=== PATIENT | male | born 1980 | race African-American/Black ===

== ENCOUNTER 2016-07-26 15:47 | Emergency (ER) | payer OTHER, SELFPAY ==
[~2016-07-26 15:47] MED LIST: Iopamidol 370 76% 100 ML VIAL ONE
[2016-07-26 16:23] LABS: #Basophils 0.1 thou/uL (0.0-0.2); #Eosinphils 0.1 thou/uL (0.0-0.7); #Lymphocytes 2.5 thou/uL (1.20-3.40); #Monocytes 0.7 thou/uL (0.11-0.59); #Neutrophils 4.8 thou/uL (1.40-6.50); %Basophils 1.1 % (0.0-1.0); %Eosinophils 1.4 % (0.0-10.0); %Monocytes 8.4 % (0.0-10.0); Hematocrit 38.4 % (42.0-52.0); Mean Platelet Volume 8.1 fL (7.4-10.4); Red Blood Cell (RBC) Count 4.73 mill/uL (4.70-6.10); White Blood Cell (WBC) Count 8.3 thou/uL (4.8-10.8)
[2016-07-26 16:32] LABS: PTT 33.7 SEC (22.9-36.1); Prothrombin Time 18.2 SEC (12.0-14.7)
[2016-07-26 16:37] LABS: Lactic Acid - Sepsis 1.7 mmol/L (0.5-2.2)
[2016-07-26 16:40] LABS: ALT (SGPT) 481 U/L (0-55); AST (SGOT) 170 U/L (5-34); Alkaline Phosphatase 86 U/L (40-150); Anion Gap 14 mmol/L (10-20); BUN (Urea Nitrogen) 15 mg/dL (8.9-20.6); Bilirubin, Total 1.3 mg/dL (0.2-1.2); Calc. Creatinine Clearance 0 mL/min (70-130); Calcium 8.6 mg/dL (7.8-10.44); Carbon Dioxide 21 mmol/L (22-29); Chloride 108 mmol/L (98-107); Estimated GFR-MDRD 80; Globulin 3.4 g/dL (2.4-3.5)
[2016-07-26 16:46] LABS: Troponin I 0.076 ng/mL (< 0.028)
[2016-07-26] MEDS ORDERED: Nitroglycerin 50 MG/250 ML BOT 250 ML ONE (17:03)
[2016-07-26] MEDS ORDERED: Furosemide 40 MG/4 ML VIAL ONE (17:03)
[2016-07-26 17:41] LABS: Methamphetamine Detected (NotDetected)
[2016-07-26 17:42] LABS: Methadone Not Detected (NotDetected)
--- NOTE | 2016-07-26 18:08 | ERRECORD ---
[facility] EMERGENCY RECORD HPI SHORTNESS OF BREATH (16:17 DHAM) CHIEF COMPLAINT: Patient presents for evaluation of shortness of breath. HISTORIAN: History provided by patient, Pt had a fever to 101 several days ago but it has not recurred. LOCATION: Unable to localize symptoms. QUALITY: Symptoms described as tightness. SEVERITY: Current severity of pain rated as 1/10. TIME COURSE: Gradual onset of symptoms, 5, days priror to arrival, Symptoms are worsening, just to walk across the room causes him to feel shortness of breath. ASSOCIATED WITH: No associated anxiety, No associated chills, Associated with cough, for 5 days, No associated chest pain, No associated diaphoresis, No associated diarrhea, Associated with dyspnea on exertion, Associated with fever, Measured maximum temperature 101 to 101.9 degrees, taken orally, for 4 days, currently resolved, No associated increased inhaler use, No associated nausea, No associated palpitations, No associated upper respiratory infection, No associated vomiting, No associated wheezing, Denies any other complaints. EXACERBATED BY: Patient's condition not exacerbated by allergies, Patient's condition not exacerbated by deep breaths, Patient's condition exacerbated by exercise, Patient's condition exacerbated by smoking. RELIEVED BY: Patient's condition relieved by nothing, Patient's condition relieved by took alkaseltzer 2 days ago without relief. RISK FACTORS: Coronary artery disease risk factors, include hypertension, include smoking, Thoracic aortic dissection risk factors, include hypertension, Pulmonary embolism risk factors, include smoking. ROS (16:23 DHAM) EYES: Historian denies eye pain, denies eye redness, denies eye discharge. ENT: Historian denies dysphagia, denies otalgia, denies rhinorrhea, denies sinus pain, denies sore throat, denies stridor, denies voice changes. CARDIOVASCULAR: Historian denies chest pain, no radiation, Historian denies diaphoresis, reports dyspnea on exertion, denies edema, denies orthopnea, denies paroxysmal nocturnal dyspnea, denies syncope, denies palpitations. RESPIRATORY: Historian reports cough, reports shortness of breath, denies sputum, denies wheezing. GI: Historian denies abdominal pain, denies appetite changes, denies constipation, denies diarrhea, denies nausea, denies vomiting. GENITOURINARY MALE: Historian denies dysuria, denies urinary frequency, denies urinary retention. MUSCULOSKELETAL: Historian reports back pain, denies fall, denies injury. c/o LBP left lower for 3-4 days. &a-1R&a+25V*p+0X*r3059B*c202B*c15G*c2P*p-0X&a-25V&a+1R Name: Chai Perrin : 1980 M35 MedRec: [id number] AcctNum: [id number] Prepared: Khalida Jul 27, 2016 09:00 by Interface Page 1 of 5 pMD [facility] EMERGENCY RECORD SKIN: Historian denies rash, denies skin changes, denies skin lesions. NEUROLOGIC: Historian denies confusion, denies dizziness, denies focal weakness, denies gait changes, denies headache, denies mental status changes, denies paresthesias. ENDOCRINE: Historian denies polydipsia, denies polyuria. HEMO/LYMPHATIC: Historian denies abnormal blood clotting, denies easy bruising. ALLERGIC/IMMUNOLOGIC: Historian denies frequent infections, denies hives. PSYCHIATRIC: Historian denies alcohol abuse, denies anxiety, denies depression, denies drug abuse, denies hallucinations, denies memory loss. denies recent drug use but admits to meth and THC use "a long time ago.". PAST MEDICAL HISTORY MEDICAL HISTORY: Flu vaccine not up to date, Tetanus immunization up to date, Pneumococcal vaccine not up to date, Past medical history includes history of hypertension. (16:30 LGIB) MALE SURGICAL HISTORY: right foot Verified 07/26/16. (16:30 LGIB) PSYCHIATRIC HISTORY: No previous psychiatric history. (16:30 LGIB) SOCIAL HISTORY: Patient denies alcohol use, Patient currently uses drugs, abuses marijuana, Patient currently uses tobacco, smokes cigarettes, 3 cigs/day. (16:30 LGIB) NOTES: I have reviewed the nursing documentation regarding PMHX, social hx, family hx, and surgical history as well as vitals and triage notes and agree. (16:31 DHAM) KNOWN ALLERGIES No Known Drug Allergies CURRENT MEDICATIONS (16:28 LGIB) None VITAL SIGNS VITAL SIGNS: BP: 156/131, Pulse: 123, Resp: 30, Temp: 97.6 (Oral), O2 sat: 100 on Room Air, Time: 07/26/2016 15:55. (15:55 LGIB) BP: 173/133, Time: 07/26/2016 16:00. (16:00 HASA) Pulse: 116, Resp: 33, Time: 07/26/2016 16:21. (16:21 HASA) BP: 156/117, Pulse: 117, Resp: 23, O2 sat: 99 on Room Air, Time: 07/26/2016 16:25. (16:25 HASA) Resp: 36, Time: 07/26/2016 16:31. (16:31 LGIB) BP: 143/120, Pulse: 119, Resp: 34, O2 sat: 98 on 2L Oxygen, Time: 07/26/2016 17:15. (17:15 LGIB) BP: 154/114, Pulse: 120, Resp: 34, O2 sat: 98 on 2L Oxygen, Time: 07/26/2016 17:20. (17:20 LGIB) &a-1R&a+25V*p+0X*k7557N*c202B*c15G*c2P*p-0X&a-25V&a+1R Name: Chai Perrin : 1980 M35 MedRec: [id number] AcctNum: [id number] Prepared: Khalida Jul 27, 2016 09:00 by Interface Page 2 of 5 pMD [facility] EMERGENCY RECORD BP: 125/125, Pulse: 121, Resp: 31, O2 sat: 100 on 2L Oxygen, Time: 07/26/2016 17:25. (17:25 AHOO) BP: 148/114, Pulse: 118, Resp: 33, Temp: 97.6 (Oral), Pain: 7, O2 sat: 100 on 2L Oxygen, Time: 07/26/2016 17:35. (17:35 AHOO) BP: 137/109, Time: 07/26/2016 17:40. (17:40 LGIB) PHYSICAL EXAM (16:27 DHAM) CONSTITUTIONAL: Vital signs reviewed, Patient afebrile, Pulse elevated but decreasing ("my pulse and blood pressure always get really high in the emergency room."), Blood pressure elevated but decreasing, Respiratory rate increased with occasional shallow cough, Patient appears non toxic, Patient appears pain free, Patient alert and oriented to person, place and time. HEAD: Head exam normal, Head exam included findings of head atraumatic. EYES: Eye exam included findings of eyelids normal to inspection, Pupils equally round and reactive to light, Extraocular muscles intact, Conjunctiva normal. ENT: Ear exam normal, external ear normal, tympanic membranes normal, no drainage, Nose exam normal, no nasal deformity, no nasal congestion or rhinorrhea, Pharynx exam normal, Uvula exam normal, Tonsil exam normal, teeth normal. NECK: Neck exam included findings of normal range of motion, Thyroid normal, no carotid bruits, no meningeal signs, no jugular venous distention, no cervical adenopathy, Pt does not appear to have JVD but there is some HJR up to the angle of the jaw at 45 degrees. RESPIRATORY CHEST: Breath sounds clear, No wheezing, No rales, No rhonchi. CARDIOVASCULAR: Cardiovascular exam included findings of heart rate elevated with regular rhythm, Heart sounds normal, Point of maximal impulse normal. ABDOMEN MALE: Abdominal exam included findings of abdomen nontender, Bowel sounds normal, Liver normal, Spleen normal, no distension, no mass, no peritoneal signs. UPPER EXTREMITY: Upper extremity exam normal, Radial pulse normal. LOWER EXTREMITY: Lower extremity exam normal, Lower extremity exam included findings of inspection normal, Range of motion normal. NEURO: Sacha coma scale 15, Neuro exam findings include patient oriented to person, place and time, Speech normal, Gait normal, Cranial nerves intact. SKIN: Skin exam included findings of skin warm, dry, and normal in color, no rash. PSYCHIATRIC: Psychiatric exam included findings of patient oriented to person place and time, Normal affect, Judgment normal, Insight normal. EKG INTERPRETATION (16:08 [facility]) 12 LEAD EKG INTERPRETATION: 12 lead EKG interpreted by Emergency &a-1R&a+25V*p+0X*e1096N*c202B*c15G*c2P*p-0X&a-25V&a+1R Name: Chai Perrin : 1980 M35 MedRec: [id number] AcctNum: [id number] Prepared: Khalida Jul 27, 2016 09:00 by Interface Page 3 of 5 pMD [facility] EMERGENCY RECORD Department Physician at time of study, 12 lead EKG shows, sinus tachycardia, Rate (beats per minute): 120, with no ectopics, No previous EKG available for comparison, Conduction normal, T waves, inverted, Leads affected: V5, Leads affected: V6, Areas affected: lateral leads, Isabel normal, Other findings include:, early repolarization, left ventricular hypertrophy, left atrial enlargement. RADIOLOGYINTERPRETATION (16:33 DHAM) CHEST: Films of the chest show, no infiltrate, no pneumothorax, no hemothorax, no pleural effusion, mild congestive heart failure, Other findings: heart appears globular and vessels appear to have some cephalization. MEDICATION ADMINISTRATION SUMMARY Drug Name: *nitroglycerin intravenous, Dose Ordered: 10 mcg/min, Route: IV Fluid Infusion, Status: Given, Time: 17:19 07/26/2016, Drug Name: Lasix injection, Dose Ordered: 40 mg, Route: IV Push, Status: Given, Time: 17:15 07/26/2016, *Additional information available in notes, Detailed record available in Medication Service section. DOCTOR NOTES RE-EVALUATION: Pt's drug screen is pos as well. (17:41 DHAM) TEXT: Pt discussed with Dr. Macdonald who accepts the pt in transfer via EMS at 1730. Pt appears stable for transfer. (17:30 DHAM) Pt's labs and cxr suggest CHF with pulm edema that is mild. His cxr also suggests pericardial effusion. CT report is not back. He has a h/o htn and drug use and I suspect diastolic chf with Malignant hypertension as a causative factor as well. We did start O2 as his sats would trend down when sleeping. This may also represent an acute myocarditis but with the markedly elevated BP, I think malignant hypertension fits the picture better at this point. (17:25 DHAM) PROBLEM LIST No recorded problems DIAGNOSIS (17:24 DHAM) FINAL: PRIMARY: malignant hypertension, ADDITIONAL: CHF - acute diastolic heart failure. PRESCRIPTION No recorded prescriptions DISPOSITION PATIENT: Disposition Type: Discharge, Disposition: *Discharge &a-1R&a+25V*p+0X*v1580H*c202B*c15G*c2P*p-0X&a-25V&a+1R Name: Chai Perrin : 1980 M35 MedRec: [id number] AcctNum: [id number] Prepared: Khalida Jul 27, 2016 09:00 by Interface Page 4 of 5 pMD [facility] EMERGENCY RECORD Home. (16:15 DHAM) Disposition Type: Transfer, Disposition: Transfer to [facility]. (17:23 DHAM) Patient left the department. (17:55 LGIB) Martinez: AHOO=MARY Nowak, October DHAM=MD Placido, Andrew HASA=FRED Logan, Kelsey LGIB=FRED Lee, Tory &a-1R&a+25V*p+0X*w7543Z*c202B*c15G*c2P*p-0X&a-25V&a+1R Name: Chai Perrin : 1980 M35 MedRec: [id number] AcctNum: [id number] Prepared: Khalida Jul 27, 2016 09:00 by Interface Page 5 of 5 pMD MTDD
--- NOTE | 2016-07-26 18:11 | PICIS ---
[facility] EMERGENCY RECORD TRIAGE (Sat Jul 26, 2016 15:52 LGIB) PATIENT: NAME: Chai Perrin, AGE: 35, GENDER: male, : [facility] 1980, TIME OF GREET: Sat Jul 26, 2016 15:48, PREFERRED LANGUAGE: Maltese, ETHNICITY: Not or , ECODE BILLING MAP: [facility], SSN: [id number], Zip Code: [address], KG WEIGHT: 79.38, PHONE: mom, , , PERSON ID: [id number], PAYMENT: [employer] Self Pay, PCP: none. (Sat Jul 26, 2016 15:52 LGIB) COMPLAINT: diff breathing. (15:54 LGIB) ADMISSION: URGENCY: 3 Urgent, ADMISSION SOURCE: Home, TRANSPORT: CAR, BED: TRIAGE. ([facility] Jul 26, 2016 15:52 LGIB) SIRS SCORING: Heart Rate 110-139 (2), Temp range 96.8-101.1 (0), respiratory rate 35-49 (3), Total SIRS Score 5. (15:52 LGIB) PROVIDERS: TRIAGE NURSE: Tory Lee RN. (Sat Jul 26, 2016 15:52 LGIB) KNOWN ALLERGIES No Known Drug Allergies CURRENT MEDICATIONS (16:28 LGIB) None VITAL SIGNS VITAL SIGNS: BP: 156/131, Pulse: 123, Resp: 30, Temp: 97.6 (Oral), O2 sat: 100 on Room Air, Time: 07/26/2016 15:55. (15:55 LGIB) BP: 173/133, Time: 07/26/2016 16:00. (16:00 HASA) Pulse: 116, Resp: 33, Time: 07/26/2016 16:21. (16:21 HASA) BP: 156/117, Pulse: 117, Resp: 23, O2 sat: 99 on Room Air, Time: 07/26/2016 16:25. (16:25 HASA) Resp: 36, Time: 07/26/2016 16:31. (16:31 LGIB) BP: 143/120, Pulse: 119, Resp: 34, O2 sat: 98 on 2L Oxygen, Time: 07/26/2016 17:15. (17:15 LGIB) BP: 154/114, Pulse: 120, Resp: 34, O2 sat: 98 on 2L Oxygen, Time: 07/26/2016 17:20. (17:20 LGIB) BP: 125/125, Pulse: 121, Resp: 31, O2 sat: 100 on 2L Oxygen, Time: 07/26/2016 17:25. (17:25 AHOO) BP: 148/114, Pulse: 118, Resp: 33, Temp: 97.6 (Oral), Pain: 7, O2 sat: 100 on 2L Oxygen, Time: 07/26/2016 17:35. (17:35 AHOO) BP: 137/109, Time: 07/26/2016 17:40. (17:40 LGIB) NURSING ASSESSMENT: FALL RISK (17:23 LGIB) FALL RISK: Fall risk assessment findings include: no history of falls (0), No bed rest greater than 2 days (0), No use of level of consciousness altering agents with mentation or cognitive changes (0), No change in blood pressure (0), No sensory deficits (0), No impaired mobility (0), No neurologic diagnosis (0), No elimination problems (0), No confusion (0), Total score 0. NURSING ASSESSMENT: RESPIRATORY /CHEST (16:10 LGIB) &a-1R&a+25V*p+0X*w0349P*c202B*c15G*c2P*p-0X&a-25V&a+1R Name: Chai Perrin : 1980 M35 MedRec: [id number] AcctNum: [id number] Prepared: Khalida Jul 27, 2016 09:06 by Interface Page 1 of 13 pMD [facility] EMERGENCY RECORD CONSTITUTIONAL: Complex assessment performed, Patient arrives ambulatory, Gait steady, History obtained from patient, Patient cooperative, Patient alert, Oriented to person, place and time, Skin warm, Skin dry, Skin normal in color, Mucous membranes pink, Mucous membranes moist, Patient is well-groomed, Patient complains of shortness of breath, pt states he has been feeling shortness of breath for the last 5 days, especially with exertion. denies CP. pt has had a cough and says he has felt warm but has not taken his temperature in the last few days. pt is tachypneic, taking shallow breaths, but not in severe distress. RESPIRATORY/CHEST: Breath sounds clear, Respiratory assessment findings include respiratory effort, tachypneic, Respirations regular, Conversing normally, Neck and chest exam findings include trachea midline, Chest expansion equal, Chest movement symmetrical, no signs of distress, no retractions noted, no cyanosis, Associated with cough, non-productive. ENT: Ear assessment findings include ear normal to inspection, Nasal assessment findings include nose normal to inspection, Mouth and throat assessment findings include mouth inspection normal. SAFETY: Side rails up, Cart/Stretcher in lowest position, Call light within reach, Hospital ID band on. NURSING ASSESSMENT: SKIN (17:23 LGIB) SKIN: Skin assessment findings include skin warm, Skin dry, Skin normal in color, Notes: no signs of skin breakdown or pressure ulcer formation. NURSING PROCEDURE: TICKET MARKER (15:57 HASA) PATIENT IDENTIFIER: Patient actively involved in identification process, Patient's identity verified by patient stating name, Patient's identity verified by patient stating date. TICKET MARKER: Patient placed on panel monitor. FOLLOW-UP: After procedure, alarms set and on, After procedure, patient tolerating monitoring. NURSING PROCEDURE: EKG CHART (16:00 HASA) PATIENT IDENTIFIER: Patient actively involved in identification process, Patient's identity verified by patient stating name, Patient's identity verified by patient stating date. EKG: EKG indicated for TACHYCARDIA/DIFF BREATHING. FOLLOW-UP: After procedure, EKG for interpretation given to Dr. STANLEY. SAFETY: Side rails up, Cart/Stretcher in lowest position, Call light within reach, Hospital ID band on. NURSING PROCEDURE: INTAKE AND OUTPUT (17:25 LGIB) INTAKE AND OUTPUT: Total Intake (ml): 0ml, Urine output(ml): 250, Total Output (ml): 250ml, Grand Total: Output is greater than intake by 250mls. &a-1R&a+25V*p+0X*x5381W*c202B*c15G*c2P*p-0X&a-25V&a+1R Name: Chai Perrin : 1980 M35 MedRec: [id number] AcctNum: [id number] Prepared: Khalida Jul 27, 2016 09:06 by Interface Page 2 of 13 [facility] EMERGENCY RECORD NURSING PROCEDURE: IV (16:22 HASA) PATIENT IDENITIFIER: Patient actively involved in identification process, Patient's identity verified by patient stating name, Patient's identity verified by patient stating date. IV SITE 1: IV therapy indicated for hydration, IV therapy indicated for medication administration, IV established, to the right antecubital, using an 18 gauge catheter, in three attempts, Saline lock established, Flushed with normal saline (mls): 10, Labs drawn at time of placement, labeled in the presence of the patient and sent to lab, Blood cultures drawn at time of placement, labeled in the presence of the patient and sent to lab, Notes: 1st attempt by FRED Cole. 2nd attempt by FRED Vasquez. IV established by FRED Vasquez. FOLLOW-UP SITE 1: After procedure, sterile transparent dressing applied, After procedure, no drainage at IV site, After procedure, no swelling at IV site, After procedure, no redness at IV site. SAFETY: Side rails up, Cart/Stretcher in lowest position, Call light within reach, Hospital ID band on. NURSING PROCEDURE: NURSE NOTES (16:48 LGIB) NURSES NOTES: Patient is awaiting results. NURSING PROCEDURE: OXYGEN THERAPY (16:52 LGIB) OXYGEN THERAPY: 2L oxygen given, via nasal cannula applied, Applied by FRED Vasquez. NURSING PROCEDURE: TRANSFER (18:02 LGIB) TRANSFER: Reason for transfer need for specialized care, Diagnosis: CHF, MALIGNANT HYPERTENSION, Accepting institution: [facility], Accepting physician: SENA, Referring physician: JADEN, Transported by urgent ambulance, accompanied by emergency medical services personnel, Report called to receiving facility, [facility], Provided opportunity to answer questions, Summary of Care printed, Copy of patient record prepared for receiving facility, Copy of diagnostic studies, Status of patient's valuables documented on chart, Patient consent for transfer signed. BELONGINGS: Belongings and valuables with patient at time of admission include:, Belongings remain with patient, Valuables remain with patient. NURSING PROCEDURE: TRANSPORT TO TESTS TRANSPORT TO TESTS: Transport indicated to facilitate diagnosis, Patient transported to CT scan, via wheelchair, Accompanied by x-ray air analysis engineering technician. (16:54 LGIB) FOLLOW-UP: After procedure, patient returned to emergency department. (17:10 AHOO) NURSING PROCEDURE: URINE COLLECTION (17:25 LGIB) URINE COLLECTION MALE: Urine collected by void, output amount &a-1R&a+25V*p+0X*w2686G*c202B*c15G*c2P*p-0X&a-25V&a+1R Name: Chai Perrin : 1980 M35 MedRec: [id number] AcctNum: [id number] Prepared: Khalida Jul 27, 2016 09:06 by Interface Page 3 of 13 pMD [facility] EMERGENCY RECORD (mL) 250, urine tyrone in color, and clear, Specimen labeled in the presence of the patient and sent to lab. ORDER DETAILS Order Name: B type Natriuretic Peptide, Status: Active, Time: 16:07 07/26/2016, User: IGNACIO, - Ordered for: MD Stanley Darren, - Entered by: MD Stanley Darren - Sat Jul 26, 2016 16:07, - Quantity: 1, Order Name: TICKET MARKER ED, Status: Done, Time: 16:18 07/26/2016, User: FARAZ, - Ordered for: MD Stanley Darren, - Entered by: MD Stanley Darren - Sat Jul 26, 2016 16:07, - Quantity: 1, Order Name: Cardiac Profile w/CKMB & Troponin - I, Status: Active, Time: 16:07 07/26/2016, User: IGNACIO, - Ordered for: MD Stanley Darren, - Entered by: MD Stanley Darren - Sat Jul 26, 2016 16:07, - Quantity: 1, Order Name: CBC with Differential, Status: Active, Time: 16:07 07/26/2016, User: IGNACIO, - Ordered for: MD Stanley Darren, - Entered by: MD Stanley Darren - Sat Jul 26, 2016 16:07, - Quantity: 1, Order Name: Comprehensive Metabolic Panel, Status: Active, Time: 16:07 07/26/2016, User: IGNACIO, - Ordered for: MD Stanley Darren, - Entered by: MD Stanley Darren - Sat Jul 26, 2016 16:07, - Quantity: 1, Order Name: CTA Angio Chest W WO Con(PE Protocol), Status: Active, Time: 16:07 07/26/2016, User: IGNACIO, - Ordered for: MD Stanley Darren, - Entered by: MD Stanley Darren - Vikas Jul 26, 2016 16:07, - Quantity: 1, Order Name: Culture, Blood, Status: Active, Time: 16:07 07/26/2016, User: IGNACIO, - Ordered for: MD Stanley Darren, - Entered by: MD Stanley Darren - Vikas Jul 26, 2016 16:07, - Quantity: 1, Order Name: D-Dimer (Quantitative), Status: Active, Time: 16:07 07/26/2016, User: IGNACIO, - Ordered for: MD Stanley Darren, - Entered by: MD Stanley Darren - Vikas Jul 26, 2016 16:07, - Quantity: 1, Order Name: Drug Screen, Urine, Status: Active, Time: 16:52 07/26/2016, User: SHANNA, - Ordered for: MD Stanley Darren, - Entered by: MARY Nowak April - Sat Jul 26, 2016 16:52, - Quantity: 1, &a-1R&a+25V*p+0X*s1847V*c202B*c15G*c2P*p-0X&a-25V&a+1R Name: Chai Perrin : 1980 M35 MedRec: [id number] AcctNum: [id number] Prepared: Khalida Jul 27, 2016 09:06 by Interface Page 4 of 13 D [facility] EMERGENCY RECORD Order Name: EKG 12 Lead in Emergency Room, Status: Active, Time: 16:07 07/26/2016, User: IGNACIO, - Ordered for: MD Stanley Darren, - Entered by: MD Stanley Darren - Vikas Jul 26, 2016 16:07, - Quantity: 1, Order Name: ERRT Pulse Oximeter ER, Status: Active, Time: 16:07 07/26/2016, User: IGNACIO, - Ordered for: MD Stanley Darren, - Entered by: MD Stanley Darren - Vikas Jul 26, 2016 16:07, - Quantity: 1, Order Name: Lactic Acid with repeat, Status: Active, Time: 16:07 07/26/2016, User: IGNACIO, - Ordered for: MD Stanley Darren, - Entered by: MD Stanley Darren - Sat Jul 26, 2016 16:07, - Quantity: 1, Order Name: Protime with INR, Status: Active, Time: 16:07 07/26/2016, User: IGNACIO, - Ordered for: MD Stanley Darren, - Entered by: MD Stanley Darren - Sat Jul 26, 2016 16:07, - Quantity: 1, Order Name: PTT, Status: Active, Time: 16:07 07/26/2016, User: IGNACIO, - Ordered for: MD Stanley Darren, - Entered by: MD Stanley Darren - Sat Jul 26, 2016 16:07, - Quantity: 1, Order Name: SALINE LOCK, Status: Done, Time: 16:27 07/26/2016, User: LGIB, - Ordered for: MD Stanley Darren, - Entered by: MD Stanley Darren - Sat Jul 26, 2016 16:07, - Quantity: 1, Order Name: Thyroid Stimulating Hormone, Status: Active, Time: 17:37 07/26/2016, User: IGNACIO, - Ordered for: MD Stanley Darren, - Entered by: MD Stanley Darren - Sat Jul 26, 2016 17:37, - Quantity: 1, Order Name: XR Chest 1 View Portable, Status: Active, Time: 16:07 07/26/2016, User: IGNACIO, - Ordered for: MD Stanley Darren, - Entered by: MD Stanley Darren - Sat Jul 26, 2016 16:07, - Quantity: 1. MEDICATION ADMINISTRATION SUMMARY Drug Name: *nitroglycerin intravenous, Dose Ordered: 10 mcg/min, Route: IV Fluid Infusion, Status: Given, Time: 17:19 07/26/2016, Drug Name: Lasix injection, Dose Ordered: 40 mg, Route: IV Push, Status: Given, Time: 17:15 07/26/2016, *Additional information available in notes, Detailed record available in Medication Service section. MEDICATION SERVICE &a-1R&a+25V*p+0X*h9338H*c202B*c15G*c2P*p-0X&a-25V&a+1R Name: Chai Perrin : 1980 M35 MedRec: [id number] AcctNum: [id number] Prepared: Khalida Jul 27, 2016 09:06 by Interface Page 5 of 13 pMD [facility] EMERGENCY RECORD Lasix injection: Order: Lasix injection (furosemide) - Dose: 40 mg : IV Push Schedule: Now Ordered by: Andrew Stanley MD Entered by: Andrew Stanley MD Sat Jul 26, 2016 16:54 , Acknowledged by: Tory Lee RN Sat Jul 26, 2016 16:57 Documented as given by: Tory Lee RN Sat Jul 26, 2016 17:15 Patient, Medication, Dose, Route and Time verified prior to administration. IV SITE #1 IVP, initial medication, Slowly, Catheter placement confirmed via flush prior to administration, IV site without signs or symptoms of infiltration during medication administration, No swelling during administration, No drainage during administration, IV flushed after administration, Correct patient, time, route, dose and medication confirmed prior to administration, Patient advised of actions and side-effects prior to administration, Allergies confirmed and medications reviewed prior to administration, Patient in position of comfort, Side rails up, Cart in lowest position. : Follow Up : Response assessment performed, No signs or symptoms of allergic reaction noted, _IV SITE #1:_. (17:31 LGIB) nitroglycerin intravenous: Order: nitroglycerin intravenous (nitroglycerin) - Dose: 10 mcg/min : IV Fluid Infusion Schedule: Now Notes: titrate to get SBP 90-100 Ordered by: Andrew Stanley MD Entered by: Andrew Stanley MD Sat Jul 26, 2016 16:58 , Acknowledged by: Tory Lee RN Sat Jul 26, 2016 16:58 Documented as given by: Kelsey Logan RN Sat Jul 26, 2016 17:19 Patient, Medication, Dose, Route and Time verified prior to administration. IV SITE #1 IVPB or drip, subsequent infusion, Premixed, via primary tubing, on an IV pump, at 10 mcg/min, Catheter placement confirmed via flush prior to administration, IV site without signs or symptoms of infiltration during medication administration, No swelling during administration, No drainage during administration, IV flushed after administration, Correct patient, time, route, dose and medication confirmed prior to administration, Patient advised of actions and side-effects prior to administration, Allergies confirmed and medications reviewed prior to administration, Patient in position of comfort, Side rails up, Cart in lowest position. : Follow Up : _IV SITE #1:_, Titrating to patient response, Dose increased, Medication infusion changed to 12 mcg/min. (17:22 LGIB) : Follow Up : Response assessment performed, No signs or symptoms of allergic reaction noted, _IV SITE #1:_, Dose increased, Medication infusion changed to 14 mcg/min, Titrating to patient response. (17:27 LGIB) : Follow Up : Response assessment performed, No signs or symptoms of allergic reaction noted, _IV SITE #1:_, Titrating to patient response, Dose increased, Medication infusion changed to 20 mcg/min. (17:40 LGIB) &a-1R&a+25V*p+0X*x1593S*c202B*c15G*c2P*p-0X&a-25V&a+1R Name: Chai Perrin : 1980 M35 MedRec: [id number] AcctNum: [id number] Prepared: Khalida Jul 27, 2016 09:06 by Interface Page 6 of 13 pMD [facility] EMERGENCY RECORD : Follow Up : Response assessment performed, No signs or symptoms of allergic reaction noted, _IV SITE #1:_, Titrating to patient response, Dose increased, Medication infusion changed to 25 mcg/min. (17:44 LGIB) HPI SHORTNESS OF BREATH (16:17 DHAM) CHIEF COMPLAINT: Patient presents for evaluation of shortness of breath. HISTORIAN: History provided by patient, Pt had a fever to 101 several days ago but it has not recurred. LOCATION: Unable to localize symptoms. QUALITY: Symptoms described as tightness. SEVERITY: Current severity of pain rated as 1/10. TIME COURSE: Gradual onset of symptoms, 5, days priror to arrival, Symptoms are worsening, just to walk across the room causes him to feel shortness of breath. ASSOCIATED WITH: No associated anxiety, No associated chills, Associated with cough, for 5 days, No associated chest pain, No associated diaphoresis, No associated diarrhea, Associated with dyspnea on exertion, Associated with fever, Measured maximum temperature 101 to 101.9 degrees, taken orally, for 4 days, currently resolved, No associated increased inhaler use, No associated nausea, No associated palpitations, No associated upper respiratory infection, No associated vomiting, No associated wheezing, Denies any other complaints. EXACERBATED BY: Patient's condition not exacerbated by allergies, Patient's condition not exacerbated by deep breaths, Patient's condition exacerbated by exercise, Patient's condition exacerbated by smoking. RELIEVED BY: Patient's condition relieved by nothing, Patient's condition relieved by took alkaseltzer 2 days ago without relief. RISK FACTORS: Coronary artery disease risk factors, include hypertension, include smoking, Thoracic aortic dissection risk factors, include hypertension, Pulmonary embolism risk factors, include smoking. ROS (16:23 DHAM) EYES: Historian denies eye pain, denies eye redness, denies eye discharge. ENT: Historian denies dysphagia, denies otalgia, denies rhinorrhea, denies sinus pain, denies sore throat, denies stridor, denies voice changes. CARDIOVASCULAR: Historian denies chest pain, no radiation, Historian denies diaphoresis, reports dyspnea on exertion, denies edema, denies orthopnea, denies paroxysmal nocturnal dyspnea, denies syncope, denies palpitations. RESPIRATORY: Historian reports cough, reports shortness of breath, denies sputum, denies wheezing. GI: Historian denies abdominal pain, denies appetite changes, &a-1R&a+25V*p+0X*t1757H*c202B*c15G*c2P*p-0X&a-25V&a+1R Name: Chai Perrin : 1980 M35 MedRec: [id number] AcctNum: [id number] Prepared: Khalida Jul 27, 2016 09:06 by Interface Page 7 of 13 pMD [facility] EMERGENCY RECORD denies constipation, denies diarrhea, denies nausea, denies vomiting. GENITOURINARY MALE: Historian denies dysuria, denies urinary frequency, denies urinary retention. MUSCULOSKELETAL: Historian reports back pain, denies fall, denies injury. c/o LBP left lower for 3-4 days. SKIN: Historian denies rash, denies skin changes, denies skin lesions. NEUROLOGIC: Historian denies confusion, denies dizziness, denies focal weakness, denies gait changes, denies headache, denies mental status changes, denies paresthesias. ENDOCRINE: Historian denies polydipsia, denies polyuria. HEMO/LYMPHATIC: Historian denies abnormal blood clotting, denies easy bruising. ALLERGIC/IMMUNOLOGIC: Historian denies frequent infections, denies hives. PSYCHIATRIC: Historian denies alcohol abuse, denies anxiety, denies depression, denies drug abuse, denies hallucinations, denies memory loss. denies recent drug use but admits to meth and THC use "a long time ago.". PAST MEDICAL HISTORY MEDICAL HISTORY: Flu vaccine not up to date, Tetanus immunization up to date, Pneumococcal vaccine not up to date, Past medical history includes history of hypertension. (16:30 LGIB) MALE SURGICAL HISTORY: right foot Verified 07/26/16. (16:30 LGIB) PSYCHIATRIC HISTORY: No previous psychiatric history. (16:30 LGIB) SOCIAL HISTORY: Patient denies alcohol use, Patient currently uses drugs, abuses marijuana, Patient currently uses tobacco, smokes cigarettes, 3 cigs/day. (16:30 LGIB) NOTES: I have reviewed the nursing documentation regarding PMHX, social hx, family hx, and surgical history as well as vitals and triage notes and agree. (16:31 DHAM) PHYSICAL EXAM (16:27 DHAM) CONSTITUTIONAL: Vital signs reviewed, Patient afebrile, Pulse elevated but decreasing ("my pulse and blood pressure always get really high in the emergency room."), Blood pressure elevated but decreasing, Respiratory rate increased with occasional shallow cough, Patient appears non toxic, Patient appears pain free, Patient alert and oriented to person, place and time. HEAD: Head exam normal, Head exam included findings of head atraumatic. EYES: Eye exam included findings of eyelids normal to inspection, Pupils equally round and reactive to light, Extraocular muscles intact, Conjunctiva normal. ENT: Ear exam normal, external ear normal, tympanic membranes &a-1R&a+25V*p+0X*s5114D*c202B*c15G*c2P*p-0X&a-25V&a+1R Name: Chai Perrin : 1980 M35 MedRec: [id number] AcctNum: [id number] Prepared: Khalida Jul 27, 2016 09:06 by Interface Page 8 of 13 pMD [facility] EMERGENCY RECORD normal, no drainage, Nose exam normal, no nasal deformity, no nasal congestion or rhinorrhea, Pharynx exam normal, Uvula exam normal, Tonsil exam normal, teeth normal. NECK: Neck exam included findings of normal range of motion, Thyroid normal, no carotid bruits, no meningeal signs, no jugular venous distention, no cervical adenopathy, Pt does not appear to have JVD but there is some HJR up to the angle of the jaw at 45 degrees. RESPIRATORY CHEST: Breath sounds clear, No wheezing, No rales, No rhonchi. CARDIOVASCULAR: Cardiovascular exam included findings of heart rate elevated with regular rhythm, Heart sounds normal, Point of maximal impulse normal. ABDOMEN MALE: Abdominal exam included findings of abdomen nontender, Bowel sounds normal, Liver normal, Spleen normal, no distension, no mass, no peritoneal signs. UPPER EXTREMITY: Upper extremity exam normal, Radial pulse normal. LOWER EXTREMITY: Lower extremity exam normal, Lower extremity exam included findings of inspection normal, Range of motion normal. NEURO: Sacha coma scale 15, Neuro exam findings include patient oriented to person, place and time, Speech normal, Gait normal, Cranial nerves intact. SKIN: Skin exam included findings of skin warm, dry, and normal in color, no rash. PSYCHIATRIC: Psychiatric exam included findings of patient oriented to person place and time, Normal affect, Judgment normal, Insight normal. LAB INTERPRETATION (17:42 DHAM) INTERPRETATION: CBC normal, Chemistry abnormal, Cardiac enzymes abnormal, Liver functions abnormal, Urine toxicology, positive for amphetamines, positive for PCP, TSH pending. EVENTS TRANSFER: Triage to Emergency Triage. ([facility] Jul 26, 2016 15:52 LGIB) Emergency Triage to Emergency Room -03. (15:55 LGIB) Removed from Emergency Emergency Room -03. (17:55 LGIB) RADIOLOGYINTERPRETATION (16:33 DHAM) CHEST: Films of the chest show, no infiltrate, no pneumothorax, no hemothorax, no pleural effusion, mild congestive heart failure, Other findings: heart appears globular and vessels appear to have some cephalization. EKG INTERPRETATION (16:08 DHAM) 12 LEAD EKG INTERPRETATION: 12 lead EKG interpreted by Emergency Department Physician at time of study, 12 lead EKG shows, &a-1R&a+25V*p+0X*t0869N*c202B*c15G*c2P*p-0X&a-25V&a+1R Name: Chai Perrin : 1980 M35 MedRec: [id number] AcctNum: [id number] Prepared: Khalida Jul 27, 2016 09:06 by Interface Page 9 of 13 pMD [facility] EMERGENCY RECORD sinus tachycardia, Rate (beats per minute): 120, with no ectopics, No previous EKG available for comparison, Conduction normal, T waves, inverted, Leads affected: V5, Leads affected: V6, Areas affected: lateral leads, [place] normal, Other findings include:, early repolarization, left ventricular hypertrophy, left atrial enlargement. O2SAT INTERPRETATION (16:17 DHAM) O2SAT: Single pulse oximetry, Oxygen saturation 100%, on room air, Oxygen saturation interpretation: Normal, No intervention required. DOCTOR NOTES RE-EVALUATION: Pt's drug screen is pos as well. (17:41 DHAM) TEXT: Pt discussed with Dr. Macdonald who accepts the pt in transfer via EMS at 1730. Pt appears stable for transfer. (17:30 DHAM) Pt's labs and cxr suggest CHF with pulm edema that is mild. His cxr also suggests pericardial effusion. CT report is not back. He has a h/o htn and drug use and I suspect diastolic chf with Malignant hypertension as a causative factor as well. We did start O2 as his sats would trend down when sleeping. This may also represent an acute myocarditis but with the markedly elevated BP, I think malignant hypertension fits the picture better at this point. (17:25 DHAM) PROBLEM LIST No recorded problems DIAGNOSIS (17:24 DHAM) FINAL: PRIMARY: malignant hypertension, ADDITIONAL: CHF - acute diastolic heart failure. DISPOSITION PATIENT: Disposition Type: Discharge, Disposition: *Discharge Home. (16:15 DHAM) Disposition Type: Transfer, Disposition: Transfer to [facility]. (17:23 DHAM) Patient left the department. (17:55 LGIB) PRESCRIPTION No recorded prescriptions IMAGING MONITOR STRIPS: Image captured from scanner. (16:08 AHOO) *EKG: Image captured from scanner. (16:22 AHOO) CT REPORT: Image captured from scanner. (17:54 LGIB) Page 2 added. Image captured from scanner. (17:54 LGIB) ADMIN ([place] Jul 27, 2016 08:58 DHAM) &a-1R&a+25V*p+0X*c9109W*c202B*c15G*c2P*p-0X&a-25V&a+1R Name: Chai Perrin : 1980 M35 MedRec: [id number] AcctNum: [id number] Prepared: [place]ford Jul 27, 2016 09:06 by Interface Page 10 of 13 pMD [facility] EMERGENCY RECORD DIGITAL SIGNATURE: MD Stanley Darren. RESULTS LABORATORY: Cardiac Profile w/CKMB & TropI Collection DT: [facility] Jul 26, 2016 16:21, CKMB 2.2 ng/mL, Range (0-6.6), *Troponin I 0.076 - H ng/mL, Range (< 0.028), Reference Range , 0.00 - 0.028 ng/mL Negative 0.029 - 0.29 ng/mL , Indeterminate Greater or Equal to 0.3 ng/mL Strongly suggests ME , . (16:56 DHAM) B type Natriuretic Peptide Collection DT: [facility] Jul 26, 2016 16:21, *B type Natriuretic Peptide 1677.8 - H pg/mL, Range (0-100). (16:56 DHAM) Comprehensive Metabolic Panel Collection DT: [facility] Jul 26, 2016 16:21, Sodium 139 mmol/L, Range (136-145), Potassium 3.5 mmol/L, Range (3.5-5.1), *Chloride 108 - H mmol/L, Range (98-107), *Carbon Dioxide 21 - L mmol/L, Range (22-29), Anion Gap 14 mmol/L, Range (10-20), BUN (Urea Nitrogen) 15 mg/dL, Range (8.9-20.6), Creatinine 1.25 mg/dL, Range (0.7-1.3), Estimated GFR-MDRD 80 , Reference Range for Estimated GFR: Greater than 90, mL/min/1.73 m2 NOTE: The MDRD equation has not been validated for use, with the elderly (over 70 years of age), women, patients with, serious comorbid condition or persons with extremes of body size, muscle, mass, or nutritional status. , *Glucose 115 - H mg/dL, Range (70-105), Calcium 8.6 mg/dL, Range (7.8-10.44), *Bilirubin, Total 1.3 - H mg/dL, Range (0.2-1.2), Protein, Total 7.0 g/dL, Range (6.0-8.3), NOTE: Plasma values are generally 0.3 to 0.5 g/dL higher than serum values, due to the presence of fibrinogen. , Albumin 3.6 g/dL, Range (3.5-5.0), Globulin 3.4 g/dL, Range (2.4-3.5), *Alb/Glob Ratio 1.1 - L g/dL, Range (1.2-2.2), Alkaline Phosphatase 86 U/L, Range (40-150), *AST (SGOT) 170 - H U/L, Range (5-34), *ALT (SGPT) 481 - H U/L, Range (0-55). (16:56 [facility]) D-Dimer (Quantitative) Collection DT: [facility] Jul 26, 2016 16:21, See comment below , Anticoagulant? NONE Medical Necessity SUSPECT COAGULOPATHY , *D-Dimer Test 1.42 - H *mcg/mL, Range (0.27-0.43), * Reference Range Units: mcg/mL of fibrinogen equivalent, units(FEU) &a-1R&a+25V*p+0X*h0640J*c202B*c15G*c2P*p-0X&a-25V&a+1R Name: Aydin Chai : 1980 M35 MedRec: [id number] AcctNum: [id number] Prepared: Khalida Jul 27, 2016 09:06 by Interface Page 11 of 13 pMD [facility] EMERGENCY RECORD Based upon a retrospective study of [facility] patients in November 2005, a result of Less than 0.44 mcg/mL FEU is, predictive of the absence of a DVT or PE. . (16:56 [facility]) PTT Collection DT: [facility] Jul 26, 2016 16:21, See comment below , Anticoagulant? NONE Medical Necessity SUSPECT COAGULOPATHY , PTT 33.7 SEC, Range (22.9-36.1). (16:56 DHAM) Protime with INR Collection DT: [facility] Jul 26, 2016 16:21, See comment below , Anticoagulant? NONE Medical Necessity SUSPECT COAGULOPATHY , *Prothrombin Time 18.2 - H SEC, Range (12.0-14.7), INR-International Normal Ratio 1.5 , ATTENTION: READ CAREFULLY , The, recommended therapeutic ranges for oral anticoagulant treatments are: , , Low Intensity: 1.5 - 2.0 Moderate Intensity: 2.0, - 3.0 High Intensity (1): 2.5 - 3.5 High, Intensity (2): 3.0 - 4.0 CRITICAL: >, 4.0 . (16:56 DHAM) Lactic Acid for Sepsis Collection DT: [facility] Jul 26, 2016 16:21, Lactic Acid - Sepsis 1.7 mmol/L, Range (0.5-2.2). (16:56 DHAM) CBC with Differential Collection DT: [facility] Jul 26, 2016 16:21, White Blood Cell (WBC) Count 8.3 thou/uL, Range (4.8-10.8), Red Blood Cell (RBC) Count 4.73 mill/uL, Range (4.70-6.10), *Hemoglobin 13.0 - L g/dL, Range (14.0-18.0), *Hematocrit 38.4 - L %, Range (42.0-52.0), Mean Corpuscular Volume 81.1 fl, Range (80.0-94.0), Mean Corpuscular Hemoglobin 27.6 pg, Range (27.0-31.0), Mean Corpuscular HGB CONC 34.0 g/dL, Range (32.0-36.0), RBC Distribution Width 13.2 %, Range (11.5-14.5), Platelet Count 331 thou/uL, Range (130-400), Mean Platelet Volume 8.1 fL, Range (7.4-10.4), %Neutrophils 58.5 %, Range (42.0-75.0), %Lymphocytes 30.6 %, Range (21.0-51.0), %Monocytes 8.4 %, Range (0.0-10.0), %Eosinophils 1.4 %, Range (0.0-10.0), *%Basophils 1.1 - H %, Range (0.0-1.0), #Neutrophils 4.8 thou/uL, Range (1.40-6.50), #Lymphocytes 2.5 thou/uL, Range (1.20-3.40), *#Monocytes 0.7 - H thou/uL, Range (0.11-0.59), &a-1R&a+25V*p+0X*a7821T*c202B*c15G*c2P*p-0X&a-25V&a+1R Name: Chai Perrin : 1980 M35 MedRec: [id number] AcctNum: [id number] Prepared: Khalida Jul 27, 2016 09:06 by Interface Page 12 of 13 pMD [facility] EMERGENCY RECORD #Eosinphils 0.1 thou/uL, Range (0.0-0.7), #Basophils 0.1 thou/uL, Range (0.0-0.2). (16:56 [facility]) Drug Screen, Urine Collection DT: Vikas Jul 26, 2016 17:41, THC/Cannabinoid Screen Not Detected , Range (NotDetected), *Phencyclidine (PCP) Detected - H , Range (NotDetected), Cocaine Metabolite Screen Not Detected , Range (NotDetected), *Methamphetamine Detected - H , Range (NotDetected), Opiate Screen Not Detected , Range (NotDetected), *Amphetamine Detected - H , Range (NotDetected), Benzodiazepine Screen Not Detected , Range (NotDetected), Tricyclic Screen Not Detected , Range (NotDetected), Methadone Not Detected , Range (NotDetected), Barbiturates Screen Not Detected , Range (NotDetected), Oxycodone Screen Not Detected , Range (NotDetected), Propoxyphene Screen Not Detected , Range (NotDetected), Drug Screen Cutoff , Range (), The [employer] Profile-V Panel for Qualitative Drugs of Abuse assays are for, presumptive screening testing only. The drug class and detection limits, are as follows: Drug Class Detection Limit Amphetamine , 500 ng/mL* Barbiturates 200 ng/mL , Benzodiazepines 150 ng/mL* Cocaine 150 ng/mL*, Methamphetamine 500 ng/mL* Methadone 200, ng/mL* Opiates 100 ng/mL* Oxycodone , 100 ng/mL PCP 25 ng/mL Propoxyphene , 300 ng/mL Tricyclic Antidepressants 300 ng/mL Cannabinoids (THC) , 50 ng/mL Tests which yield a presumptive positive result must be , tested using a more specific alternate chemical method in order to obtain, a confirmed analytical result. Additional confirmation and identification, may be ordered on a routine basis, if desired. Presumptive positive urines, are held for two weeks. . (17:45 LGIB) Martinez: [facility] [employer] [facility] [facility]=MARY [place], October DHAM=MD Jaden, Andrew [facility]=FRED Logan, Kelsey LGIB=FRED Lee, Tory &a-1R&a+25V*p+0X*w6022I*c202B*c15G*c2P*p-0X&a-25V&a+1R Name: Chai Perrin : 1980 M35 MedRec: [id number] AcctNum: [id number] Prepared: Khalida Jul 27, 2016 09:06 by Interface Page 13 of 13 pMD MTDD
--- NOTE | 2016-07-27 15:41 | CT ---
PRELIMINARY REPORT/[facility]/EMERGENCY AFTER HOURS PROCEDURE: \H\EXAM: \N\CT Angiography Chest With Intravenous Contrast. \H\ CLINICAL HISTORY: \N\35 years old, male; Signs and symptoms; Dyspnea; Patient HX: Pt C/O dyspnea x 5 days with elevate d d-dimer; \H\ TECHNIQUE: \N\Axial computed tomographic angiography images of the chest with intravenous contrast using pulmonary embolism protocol. Coronal reformatted images were created and reviewed. \H\ EXAM DATE/TIME: \N\07/26/2016 5:01 PM \H\ COMPARISON: \N\No relevant prior studies available. \H\ FINDINGS: \N\Pulmonary arteries: No pulmonary embolism. Aorta: No thoracic aortic aneurysm. Nondiagnostic evaluation for thoracic aortic dissection Lungs: Right lower lobe superior segment ill-defined nodular foci measuring up to 1.8 cm with mildly nodular changes noted elsewhere. Right lower lobe calcified granuloma. Bilateral lower lung linear changes and nonspecific mild groundglass opacities. Pleural space: Small bilateral pleural effusions. Heart: Mild cardiomegaly. No pericardial effusion. Bones: Unremarkable for age. Soft tissues: See other sections of this report. Lymph nodes: Calcified mediastinal and right hilar lymph nodes. Slight shotty bilateral hilar and me diastinal noncalcified lymph node prominence Other findings: Mild thymic hyperplasia \H\IMPRESSION: \N\- Right lower lobe superior segment ill-defined nodular foci 1.8 cm with mildly nodular changes n oted elsewhere and small bilateral pleural effusions. - Mild cardiomegaly Thank you for allowing us to participate in the care of your patient. Dictated and Authenticated by: Martin Wolf MD 07/26/2016 5:49 PM Central Time ([place] \T\ [place]) FINAL REPORT CT ANGIOGRAM OF THE CHEST: Date: 07-26-16 Technique: Spiral CT of the chest was done emergently for evaluation of shortness of breath and an elevated D-dimer. Axial slices were acquired then coronal and oblique coronal reformations through the pulmonary arteries were obtained. FINDINGS: There is excellent opacification of the pulmonary arteries. There are no internal filling defects to suggest emboli. The aorta shows no sign of aneurysm or dissection. No mediastinal mass or signi ficant adenopathy was seen. Only a few small nodes were noted. The heart is definitely enlarged. There is no pericardial effusion. Small to medium sized pleural effusions are present bilaterally, right slightly greater than left. The lungs show some scattered ground glass and nodular opacities throughout them, particularly in th e right upper lobe and the right lower lobe. Taken in concert with the patient's recent chest x-ray , I suspect the findings are related to congestion and pulmonary edema. I would need to see a follo w up scan to make sure the nodular changes resolved, though I suspect they will if the underlying ca uses are treated. There are no lobar consolidations. A few slices into the upper abdomen showed no acute changes. IMPRESSION: 1. No evidence of pulmonary embolism. 2. Cardiomegaly and presumed mild congestive changes. 3. Ground glass and nodular opacities in the lungs which may be related to congestive changes. Furt her work up needed. Report in agreement with preliminary reading by LU. POS: HOME
--- NOTE | 2016-07-27 15:45 | RAD ---
PORTABLE CHEST: Date: 07-26-16 An AP portable film at 1619 shows mild to moderate cardiomegaly and vascular congestion. Congestive changes are presumed. There are no lobar consolidations or effusions. The trachea is midline. IMPRESSION: Findings suggestive of mild congestive change of unknown etiology. POS: HOME
== END 2016-07-26 17:54 | disposition short-term general hospital (02) ==
LOC: BURERS 15:47
DX: I50.31 Acute diastolic (congestive) heart failure (principal); I10 Essential (primary) hypertension; F17.210 Nicotine dependence, cigarettes, uncomplicated
CPT/HCPCS: 36415; 71010; 71275; 80053; 82553; 83605; 83880; 84443; 84484; 85025; 85379; 85610; 85730; 87040; 93005; 94760; 96365; 96375; G0478; J1940

== ENCOUNTER 2016-10-14 17:25 | Emergency (ER) | payer SELFPAY ==
[2016-10-14] MEDS ORDERED: Nitroglycerin 2% Ointment 1 INCH/1 GM Packet ONE (17:53)
[2016-10-14 18:08] LABS: ALT (SGPT) 337 U/L (0-55); AST (SGOT) 140 U/L (5-34); Albumin 3.4 g/dL (3.5-5.0); Alkaline Phosphatase 76 U/L (40-150); Anion Gap 12 mmol/L (10-20); BUN (Urea Nitrogen) 17 mg/dL (8.9-20.6); Calc. Creatinine Clearance 0 mL/min (70-130); Calcium 8.5 mg/dL (7.8-10.44); Carbon Dioxide 18 mmol/L (22-29); Chloride 113 mmol/L (98-107); Digoxin Less than 0.15 ng/mL (0.8-2.0); Estimated GFR-MDRD 75; Globulin 3.3 g/dL (2.4-3.5); Glucose 125 mg/dL (70-105); Potassium 3.2 mmol/L (3.5-5.1); Protein, Total 6.7 g/dL (6.0-8.3); Sodium 140 mmol/L (136-145)
[2016-10-14 18:09] LABS: Eosinophils 1 % (0-10); Hemoglobin 12.9 g/dL (14.0-18.0); Lymphocytes 26 % (21-51); MDiff Complete? YES; Mean Corpuscular HGB CONC 31.7 g/dL (32.0-36.0); Mean Corpuscular Hemoglobin 25.9 pg (27.0-31.0); Mean Corpuscular Volume 81.7 fl (80.0-94.0); Mean Platelet Volume 9.6 fL (7.4-10.4); Microcytosis SLIGHT = 6-15 cells (100X) (0-5/hpf); Monocytes 6 % (0-10); Neutrophil 66 % (42-75); Platelet Count 299 thou/uL (130-400); RBC Distribution Width 15.7 % (11.5-14.5); Red Blood Cell (RBC) Count 4.99 mill/uL (4.70-6.10); White Blood Cell (WBC) Count 7.6 thou/uL (4.8-10.8)
[2016-10-14 18:12] LABS: CKMB 1.7 ng/mL (0-6.6); Troponin I 0.028 ng/mL (< 0.028)
[2016-10-14] MEDS ORDERED: Furosemide 40 MG/4 ML VIAL ONE (18:19)
--- NOTE | 2016-10-14 20:22 | RAD ---
PORTABLE CHEST 10/14/16 An AP portable film at 1818 is compared with a 08/16/16 study. Mild cardiomegaly is no different than before. There is no vascular congestion, edema, or pleural ef fusion. The lungs are clear. The trachea is midline. IMPRESSION: Mild cardiomegaly with little change since July. POS: HOME
== END 2016-10-14 18:47 | disposition short-term general hospital (02) ==
LOC: BURERS 17:25
DX: I11.0 Hypertensive heart disease with heart failure (principal); I50.9 Heart failure, unspecified; I42.7 Cardiomyopathy due to drug and external agent; F17.210 Nicotine dependence, cigarettes, uncomplicated
CPT/HCPCS: 71010; 80053; 80162; 82553; 83880; 84484; 85025; 93005; 94760; 96374; J1940

== ENCOUNTER 2016-11-03 14:52 | Emergency (ER) | payer OTHER, SELFPAY ==
[2016-11-03 15:42] LABS: #Basophils 0.1 thou/uL (0.0-0.2); #Eosinphils 0.1 thou/uL (0.0-0.7); #Lymphocytes 2.2 thou/uL (1.20-3.40); #Monocytes 0.8 thou/uL (0.11-0.59); #Neutrophils 3.6 thou/uL (1.40-6.50); %Basophils 1.3 % (0.0-1.0); %Lymphocytes 32.1 % (21.0-51.0); %Monocytes 12.1 % (0.0-10.0); %Neutrophils 52.5 % (42.0-75.0); Hemoglobin 12.6 g/dL (14.0-18.0); Mean Corpuscular HGB CONC 31.9 g/dL (32.0-36.0); Mean Corpuscular Hemoglobin 25.6 pg (27.0-31.0); Mean Corpuscular Volume 80.2 fl (80.0-94.0); Mean Platelet Volume 8.2 fL (7.4-10.4); Platelet Count 301 thou/uL (130-400); RBC Distribution Width 16.4 % (11.5-14.5); Red Blood Cell (RBC) Count 4.93 mill/uL (4.70-6.10); White Blood Cell (WBC) Count 6.8 thou/uL (4.8-10.8)
[2016-11-03 15:58] LABS: ALT (SGPT) 41 U/L (0-55); AST (SGOT) 29 U/L (5-34); Albumin 3.7 g/dL (3.5-5.0); Alkaline Phosphatase 70 U/L (40-150); Anion Gap 10 mmol/L (10-20); BUN (Urea Nitrogen) 17 mg/dL (8.9-20.6); Bilirubin, Total 1.6 mg/dL (0.2-1.2); Calc. Creatinine Clearance 0 mL/min (70-130); Calcium 8.5 mg/dL (7.8-10.44); Carbon Dioxide 20 mmol/L (22-29); Chloride 113 mmol/L (98-107); Estimated GFR-MDRD 84; Globulin 3.3 g/dL (2.4-3.5); Glucose 113 mg/dL (70-105); Potassium 3.7 mmol/L (3.5-5.1); Sodium 139 mmol/L (136-145)
[2016-11-03 17:16] LABS: CKMB 2.1 ng/mL (0-6.6); Troponin I 0.018 ng/mL (< 0.028)
[2016-11-03] MEDS ORDERED: Furosemide 40 MG/4 ML VIAL ONE (17:19)
[2016-11-03] MEDS ORDERED: Lisinopril 5 MG TAB ONE (17:23)
--- NOTE | 2016-11-03 21:31 | RAD ---
CHEST TWO VIEWS: Date: 11-03-16 Comparison: 10-14-16 portable study. FINDINGS: Cardiomegaly is present as before. The cardiac size is similar. The vessels are not quite as promine nt as today as they were previously, however. There are no clear congestive changes today. The lungs are clear and no effusions were present. The trachea is midline. IMPRESSION: Cardiomegaly without gross congestive change. POS: HOME
== END 2016-11-03 17:57 | disposition home or self-care (01) ==
LOC: BURERS 14:52
DX: I11.0 Hypertensive heart disease with heart failure (principal); I50.9 Heart failure, unspecified; Z91.14 Patient's other noncompliance with medication regimen; F17.210 Nicotine dependence, cigarettes, uncomplicated; Z79.899 Other long term (current) drug therapy
CPT/HCPCS: 71020; 80053; 82553; 83880; 84484; 85025; 93005; 94760; 96374; J1940

== ENCOUNTER 2016-12-15 09:03 | Emergency (ER) | payer SELFPAY ==
[2016-12-15 09:47] LABS: Hemoglobin 12.3 g/dL (14.0-18.0); Mean Corpuscular HGB CONC 33.1 g/dL (32.0-36.0); Mean Corpuscular Hemoglobin 25.6 pg (27.0-31.0); Mean Corpuscular Volume 77.2 fl (80.0-94.0); Mean Platelet Volume 7.9 fL (7.4-10.4); Platelet Count 285 thou/uL (130-400); RBC Distribution Width 14.9 % (11.5-14.5); White Blood Cell (WBC) Count 5.8 thou/uL (4.8-10.8)
[2016-12-15 09:53] LABS: Digoxin Less than 0.15 ng/mL (0.8-2.0)
[2016-12-15 09:55] LABS: ALT (SGPT) 132 U/L (8-55); AST (SGOT) 95 U/L (5-34); Albumin 3.8 g/dL (3.5-5.0); Alkaline Phosphatase 79 U/L (40-150); Anion Gap 17 mmol/L (10-20); BUN (Urea Nitrogen) 15 mg/dL (8.9-20.6); Bilirubin, Total 2.6 mg/dL (0.2-1.2); Calc. Creatinine Clearance 0 mL/min (70-130); Calcium 8.8 mg/dL (7.8-10.44); Carbon Dioxide 17 mmol/L (22-29); Chloride 109 mmol/L (98-107); Estimated GFR-MDRD 81; Globulin 3.7 g/dL (2.4-3.5); Glucose 130 mg/dL (70-105); Magnesium 1.6 mg/dL (1.6-2.6); Potassium 3.2 mmol/L (3.5-5.1); Protein, Total 7.5 g/dL (6.0-8.3); Sodium 140 mmol/L (136-145)
[2016-12-15 09:56] LABS: CKMB 2.1 ng/mL (0-6.6); Troponin I 0.055 ng/mL (< 0.028)
[2016-12-15] MEDS ORDERED: Furosemide 40 MG/4 ML VIAL ONE ×2 (10:01→10:13)
[2016-12-15] MEDS ORDERED: Nitroglycerin 0.4 MG TAB (25 Tab Bottle) ONE ×2 (10:01→10:14)
[2016-12-15 10:04] LABS: Lymphocytes 42 % (21-51); MDiff Complete? YES; Monocytes 12 % (0-10); Neutrophil 45 % (42-75); PLT Morphology Comment Appears Adequate; RBC Morphology Normal
--- NOTE | 2016-12-15 11:27 | RAD ---
CHEST 1 VIEW: HISTORY: Dyspnea. COMPARISON: Chest 1 view 10/14/16. FINDINGS: Heart size is enlarged. No pneumothorax or effusion. Mild peribronchovascular opacities. IMPRESSION: Cardiomegaly and mild edema. POS: [facility]
== END 2016-12-15 10:29 | disposition short-term general hospital (02) ==
LOC: BURERS 09:03
DX: I11.0 Hypertensive heart disease with heart failure (principal); I50.9 Heart failure, unspecified; F17.210 Nicotine dependence, cigarettes, uncomplicated; Z79.899 Other long term (current) drug therapy
CPT/HCPCS: 71010; 80053; 80162; 82553; 83735; 83880; 84484; 85025; 93005; 96374; J1940

== ENCOUNTER 2017-02-11 18:54 | Emergency (ER) | payer OTHER, SELFPAY ==
[2017-02-11] MEDS ORDERED: Nitroglycerin 50 MG/250 ML BOT 250 ML ONE (19:31)
[2017-02-11] MEDS ORDERED: Furosemide 40 MG/4 ML VIAL ONE (19:31)
[2017-02-11 19:44] LABS: INR-International Normal Ratio 1.4; PTT 33.4 SEC (22.9-36.1)
[2017-02-11 19:53] LABS: #Basophils 0.1 thou/uL (0.0-0.2); #Eosinphils 0.1 thou/uL (0.0-0.7); #Lymphocytes 1.6 thou/uL (1.20-3.40); #Monocytes 0.3 thou/uL (0.11-0.59); #Neutrophils 3.7 thou/uL (1.40-6.50); %Eosinophils 1.6 % (0.0-10.0); %Lymphocytes 27.6 % (21.0-51.0); %Monocytes 5.3 % (0.0-10.0); %Neutrophils 64.4 % (42.0-75.0); Anisocytosis SLIGHT = 6-15 cells (100X) (0-5/hpf); Hemoglobin 11.6 g/dL (14.0-18.0); Hypochromia SLIGHT = 6-15 cells (100X) (0-5/hpf); MDiff Complete? YES; Mean Corpuscular HGB CONC 31.6 g/dL (32.0-36.0); Mean Corpuscular Hemoglobin 24.6 pg (27.0-31.0); Mean Corpuscular Volume 77.8 fl (80.0-94.0); Mean Platelet Volume 8.5 fL (7.4-10.4); Microcytosis SLIGHT = 6-15 cells (100X) (0-5/hpf); Platelet Count 278 thou/uL (130-400); RBC Distribution Width 16.3 % (11.5-14.5); White Blood Cell (WBC) Count 5.7 thou/uL (4.8-10.8)
[2017-02-11 19:55] LABS: ALT (SGPT) 35 U/L (8-55); AST (SGOT) 28 U/L (5-34); Albumin 3.6 g/dL (3.5-5.0); Alkaline Phosphatase 76 U/L (40-150); Anion Gap 14 mmol/L (10-20); BUN (Urea Nitrogen) 20 mg/dL (8.9-20.6); Calc. Creatinine Clearance 0 mL/min (70-130); Carbon Dioxide 20 mmol/L (22-29); Chloride 110 mmol/L (98-107); Estimated GFR-MDRD 77; Globulin 3.7 g/dL (2.4-3.5); Glucose 181 mg/dL (70-105); Potassium 3.2 mmol/L (3.5-5.1); Protein, Total 7.3 g/dL (6.0-8.3); Sodium 141 mmol/L (136-145)
[2017-02-11 19:56] LABS: CKMB 2.1 ng/mL (0-6.6); Troponin I 0.026 ng/mL (< 0.028)
[2017-02-11] MEDS ORDERED: Potassium Chloride 20 MEQ TAB ONE (20:46)
--- NOTE | 2017-02-11 21:24 | RAD ---
PORTABLE CHEST 02/11/17 An AP portable film at 1715 is compared with a 12/15 study. Moderate cardiomegaly is noted as before. The cardiac size is about the same. There is no clear paolo a or congestion. No effusions are seen. The lungs are clear. IMPRESSION: Moderate cardiomegaly. POS: HOME
[2017-02-11 21:53] LABS: Amphetamine Not Detected (NotDetected); Barbiturates Screen Not Detected (NotDetected); Benzodiazepine Screen Not Detected (NotDetected); Cocaine Metabolite Screen Not Detected (NotDetected); Medtox Control Line Valid? VALID (VALID); Methadone Not Detected (NotDetected); Methamphetamine Not Detected (NotDetected); Opiate Screen Not Detected (NotDetected); Oxycodone Screen Not Detected (NotDetected); Phencyclidine (PCP) Not Detected (NotDetected); THC/Cannabinoid Screen Not Detected (NotDetected); Tricyclic Screen Not Detected (NotDetected)
== END 2017-02-11 20:57 | disposition short-term general hospital (02) ==
LOC: BURERS 18:54
DX: I11.0 Hypertensive heart disease with heart failure (principal); I50.9 Heart failure, unspecified; E87.6 Hypokalemia; F17.210 Nicotine dependence, cigarettes, uncomplicated; Z79.899 Other long term (current) drug therapy; Z91.14 Patient's other noncompliance with medication regimen
CPT/HCPCS: 71010; 80053; 80306; 82553; 83880; 84484; 85025; 85610; 85730; 93005; 94760; 96374; 96375; J1940

== ENCOUNTER 2017-07-14 11:26 | Emergency (ER) | payer SELFPAY, OTHER ==
[2017-07-14] MEDS ORDERED: Lisinopril 5 MG TAB ONE (11:38)
[2017-07-14] MEDS ORDERED: Furosemide 40 MG TAB ONE (11:38)
== END 2017-07-14 11:45 | disposition home or self-care (01) ==
LOC: BURERS 11:26
DX: I11.0 Hypertensive heart disease with heart failure (principal); I50.9 Heart failure, unspecified; Z91.14 Patient's other noncompliance with medication regimen; F15.10 Other stimulant abuse, uncomplicated; F17.210 Nicotine dependence, cigarettes, uncomplicated; Z79.899 Other long term (current) drug therapy
CPT/HCPCS: 99281

== ENCOUNTER 2017-07-28 17:25 | Emergency (ER) | payer OTHER, SELFPAY ==
[2017-07-28 18:10] LABS: #Basophils 0.1 thou/uL (0.0-0.2); #Eosinphils 0.1 thou/uL (0.0-0.7); #Lymphocytes 1.6 thou/uL (1.20-3.40); #Monocytes 0.5 thou/uL (0.11-0.59); #Neutrophils 2.9 thou/uL (1.40-6.50); %Basophils 1.1 % (0.0-1.0); %Eosinophils 2.8 % (0.0-10.0); %Lymphocytes 31.2 % (21.0-51.0); %Monocytes 9.6 % (0.0-10.0); %Neutrophils 55.3 % (42.0-75.0); Mean Corpuscular HGB CONC 33.1 g/dL (32.0-36.0); Mean Corpuscular Hemoglobin 26.3 pg (27.0-31.0); Mean Corpuscular Volume 79.5 fl (80.0-94.0); Mean Platelet Volume 7.7 fL (7.4-10.4); Platelet Count 253 thou/uL (130-400); RBC Distribution Width 15.9 % (11.5-14.5); Red Blood Cell (RBC) Count 4.56 mill/uL (4.70-6.10); White Blood Cell (WBC) Count 5.2 thou/uL (4.8-10.8)
[2017-07-28 18:19] LABS: ALT (SGPT) 26 U/L (8-55); AST (SGOT) 23 U/L (5-34); Albumin 3.6 g/dL (3.5-5.0); Alkaline Phosphatase 87 U/L (40-150); Anion Gap 15 mmol/L (10-20); BUN (Urea Nitrogen) 19 mg/dL (8.9-20.6); Bilirubin, Total 1.8 mg/dL (0.2-1.2); Calc. Creatinine Clearance 0 mL/min (70-130); Calcium 9.2 mg/dL (7.8-10.44); Carbon Dioxide 22 mmol/L (22-29); Chloride 107 mmol/L (98-107); Estimated GFR-MDRD 68; Globulin 4.3 g/dL (2.4-3.5); Glucose 119 mg/dL (70-105); Potassium 3.2 mmol/L (3.5-5.1); Protein, Total 7.9 g/dL (6.0-8.3); Sodium 141 mmol/L (136-145)
[2017-07-28 18:21] LABS: CKMB 2.2 ng/mL (0-6.6); Troponin I 0.039 ng/mL (< 0.028)
[2017-07-28] MEDS ORDERED: Potassium Chloride 20 MEQ TAB ONE (18:41)
[2017-07-28] MEDS ORDERED: Furosemide 40 MG/4 ML VIAL ONE (18:41)
--- NOTE | 2017-07-28 20:38 | RAD ---
PORTABLE CHEST 07/28/17 Comparison is made with the 02/11/17 study. The heart is moderately enlarged as usual. There are no congestive changes, pleural effusions, or inf iltrates. There is no sign of pneumonia. The trachea is midline. IMPRESSION: No acute thoracic findings. POS: HOME
== END 2017-07-28 19:05 | disposition home or self-care (01) ==
LOC: BURERS 17:25
DX: I11.0 Hypertensive heart disease with heart failure (principal); I50.9 Heart failure, unspecified; F17.210 Nicotine dependence, cigarettes, uncomplicated; Z79.899 Other long term (current) drug therapy; Z79.82 Long term (current) use of aspirin
CPT/HCPCS: 71045; 80053; 82553; 83880; 84484; 85025; 93005; 96374; J1940

== ENCOUNTER 2017-07-30 12:48 | Emergency (ER) | payer SELFPAY ==
[2017-07-30 13:10] LABS: #Eosinphils 0.1 thou/uL (0.0-0.7); #Lymphocytes 1.6 thou/uL (1.20-3.40); #Monocytes 0.7 thou/uL (0.11-0.59); #Neutrophils 3.8 thou/uL (1.40-6.50); %Basophils 0.6 % (0.0-1.0); %Eosinophils 1.3 % (0.0-10.0); %Lymphocytes 26.2 % (21.0-51.0); %Monocytes 11.1 % (0.0-10.0); %Neutrophils 60.7 % (42.0-75.0); Hemoglobin 12.4 g/dL (14.0-18.0); Mean Corpuscular HGB CONC 31.9 g/dL (32.0-36.0); Mean Corpuscular Hemoglobin 25.5 pg (27.0-31.0); Mean Platelet Volume 7.7 fL (7.4-10.4); Platelet Count 273 thou/uL (130-400); RBC Distribution Width 15.7 % (11.5-14.5); Red Blood Cell (RBC) Count 4.85 mill/uL (4.70-6.10); White Blood Cell (WBC) Count 6.2 thou/uL (4.8-10.8); pH (venous) 7.41 (7.35-7.45)
[2017-07-30 13:11] LABS: Base Excess -0.8 mEq/L (-2 - +2); Hemoglobin (Hb) 12.9 g/dL (13.2-17.3)
[2017-07-30 13:29] LABS: ALT (SGPT) 37 U/L (8-55); AST (SGOT) 35 U/L (5-34); Albumin 3.6 g/dL (3.5-5.0); Alkaline Phosphatase 81 U/L (40-150); Anion Gap 16 mmol/L (10-20); BUN (Urea Nitrogen) 18 mg/dL (8.9-20.6); Bilirubin, Total 3.2 mg/dL (0.2-1.2); Calc. Creatinine Clearance 0 mL/min (70-130); Calcium 9.5 mg/dL (7.8-10.44); Carbon Dioxide 21 mmol/L (22-29); Chloride 107 mmol/L (98-107); Estimated GFR-MDRD 72; Globulin 4.3 g/dL (2.4-3.5); Glucose 154 mg/dL (70-105); Potassium 3.6 mmol/L (3.5-5.1); Protein, Total 7.9 g/dL (6.0-8.3); Sodium 140 mmol/L (136-145)
[2017-07-30 13:32] LABS: CKMB 1.7 ng/mL (0-6.6); Troponin I 0.041 ng/mL (< 0.028)
[2017-07-30] MEDS ORDERED: Furosemide 40 MG/4 ML VIAL ONE (14:19)
--- NOTE | 2017-07-30 16:15 | RAD ---
PORTABLE CHEST: DATE: 07/30/17. FINDINGS: An AP portable film at 1258 is compared with a 07/28 study. There has been little change. Moderate ca rdiomegaly is about the same as before. There is no vascular congestion, edema, or pleural effusion. There may be a little more streaking in the right cardiophrenic angle, but most of this may be from minimal atelectasis. IMPRESSION: Little change since 07/28. POS: HOME
== END 2017-07-30 14:09 | disposition short-term general hospital (02) ==
LOC: BURERS 12:48
DX: I11.0 Hypertensive heart disease with heart failure (principal); I50.9 Heart failure, unspecified; F17.210 Nicotine dependence, cigarettes, uncomplicated; Z79.899 Other long term (current) drug therapy
CPT/HCPCS: 71045; 80053; 82553; 82805; 83880; 84484; 85025; 93005; 96374; J1940

== ENCOUNTER 2018-02-04 13:03 | Emergency (ER) | payer OTHER, SELFPAY ==
[2018-02-04] MEDS ORDERED: Nitroglycerin 0.4 MG TAB (25 Tab Bottle) ONE (13:33)
[2018-02-04] MEDS ORDERED: Furosemide 100 MG/10 ML VIAL ONE (13:33)
[2018-02-04 13:34] LABS: Hemoglobin 10.7 g/dL (14.0-18.0); Mean Corpuscular HGB CONC 33.1 g/dL (32.0-36.0); Mean Corpuscular Hemoglobin 23.4 pg (27.0-31.0); Mean Corpuscular Volume 70.6 fL (78.0-98.0); Mean Platelet Volume 7.3 fL (7.4-10.4); Platelet Count 198 thou/uL (130-400); RBC Distribution Width 16.7 % (11.5-14.5); Red Blood Cell (RBC) Count 4.58 mill/uL (4.70-6.10); White Blood Cell (WBC) Count 5.7 thou/uL (4.8-10.8)
[2018-02-04] MEDS ORDERED: Nitroglycerin 2% Ointment 1 INCH/1 GM Packet ONE (13:35)
[2018-02-04 13:49] LABS: #Basophils 0.1 thou/uL (0.0-0.2); #Eosinphils 0.1 thou/uL (0.0-0.7); #Lymphocytes 1.2 thou/uL (1.20-3.40); #Monocytes 0.6 thou/uL (0.11-0.59); #Neutrophils 3.7 thou/uL (1.40-6.50); %Basophils 1.5 % (0.0-1.0); %Eosinophils 2.4 % (0.0-10.0); %Lymphocytes 20.5 % (21.0-51.0); %Monocytes 11.2 % (0.0-10.0); %Neutrophils 64.5 % (42.0-75.0); MDiff Complete? YES; Microcytosis MODERATE=15-30 cells (100X) (0-5/hpf)
[2018-02-04 13:53] LABS: ALT (SGPT) 17 U/L (8-55); AST (SGOT) 25 U/L (5-34); Albumin 3.4 g/dL (3.5-5.0); Alkaline Phosphatase 95 U/L (40-150); Anion Gap 12 mmol/L (10-20); BUN (Urea Nitrogen) 18 mg/dL (8.9-20.6); Bilirubin, Total 3.1 mg/dL (0.2-1.2); Calc. Creatinine Clearance 0 mL/min (70-130); Calcium 9.1 mg/dL (7.8-10.44); Carbon Dioxide 20 mmol/L (22-29); Chloride 109 mmol/L (98-107); Estimated GFR-MDRD Greater than 90; Globulin 4.4 g/dL (2.4-3.5); Glucose 134 mg/dL (70-105); Potassium 3.2 mmol/L (3.5-5.1); Protein, Total 7.8 g/dL (6.0-8.3); Sodium 138 mmol/L (136-145)
[2018-02-04 13:55] LABS: CKMB 1.5 ng/mL (0-6.6); Troponin I 0.017 ng/mL (< 0.028)
[2018-02-04] MEDS ORDERED: Lisinopril 20 MG TAB ONE (13:56)
[2018-02-04] MEDS ORDERED: Potassium Chloride 20 MEQ TAB ONE (13:57)
--- NOTE | 2018-02-04 20:57 | RAD ---
PORTABLE CHEST 02/04/18 An AP portable film at 1318 is compared with a 07/30 study. The heart is moderately enlarged but unchanged in size. There is no vascular congestion, edema, or pl eural effusion. The lungs are clear. the mediastinum shows no widening of shift. IMPRESSION: Stable cardiomegaly. POS: HOME
== END 2018-02-04 16:10 | disposition short-term general hospital (02) ==
LOC: BURERS 13:03
DX: I11.0 Hypertensive heart disease with heart failure (principal); I50.9 Heart failure, unspecified; D50.9 Iron deficiency anemia, unspecified; F17.210 Nicotine dependence, cigarettes, uncomplicated
CPT/HCPCS: 71045; 80053; 82553; 83880; 84484; 85025; 93005; 94760; 96374; J1940

== ENCOUNTER → 2018-07-20 | Emergency (ER) | payer SELFPAY ==
[~2018-07-20] MED LIST changes: +Furosemide 40 MG/4 ML VIAL ONE; -Iopamidol 370 76% 100 ML VIAL ONE; +Potassium Chloride 20 MEQ TAB ONE
[2018-07-20 19:12] LABS: #Basophils 0.1 thou/uL (0.0-0.2); #Eosinphils 0.1 thou/uL (0.0-0.7); #Lymphocytes 1.4 thou/uL (1.20-3.40); #Monocytes 0.5 thou/uL (0.11-0.59); #Neutrophils 4.6 thou/uL (1.40-6.50); %Eosinophils 0.9 % (0.0-10.0); %Lymphocytes 21.8 % (21.0-51.0); %Monocytes 7.2 % (0.0-10.0); Hemoglobin 11.2 g/dL (14.0-18.0); Hypochromia SLIGHT = 6-15 cells (100X) (0-5/hpf); MDiff Complete? YES; Mean Corpuscular HGB CONC 31.4 g/dL (32.0-36.0); Mean Corpuscular Hemoglobin 24.6 pg (27.0-31.0); Mean Corpuscular Volume 78.2 fL (78.0-98.0); Mean Platelet Volume 7.3 fL (7.4-10.4); Microcytosis SLIGHT = 6-15 cells (100X) (0-5/hpf); Platelet Count 310 thou/uL (130-400); RBC Distribution Width 14.1 % (11.5-14.5); Red Blood Cell (RBC) Count 4.56 mill/uL (4.70-6.10); White Blood Cell (WBC) Count 6.6 thou/uL (4.8-10.8)
[2018-07-20 19:19] LABS: ALT (SGPT) 30 U/L (8-55); AST (SGOT) 35 U/L (5-34); Albumin 3.5 g/dL (3.5-5.0); Alkaline Phosphatase 94 U/L (40-150); Anion Gap 15 mmol/L (10-20); BUN (Urea Nitrogen) 32 mg/dL (8.9-20.6); Bilirubin, Total 2.2 mg/dL (0.2-1.2); Calc. Creatinine Clearance 0 mL/min (70-130); Carbon Dioxide 21 mmol/L (22-29); Chloride 104 mmol/L (98-107); Estimated GFR-MDRD 62; Globulin 4.8 g/dL (2.4-3.5); Glucose 87 mg/dL (70-105); Potassium 3.1 mmol/L (3.5-5.1); Protein, Total 8.3 g/dL (6.0-8.3); Sodium 137 mmol/L (136-145)
[2018-07-20 19:42] LABS: CKMB 2.1 ng/mL (0-6.6)
--- NOTE | 2018-07-20 21:11 | RAD ---
PORTABLE CHEST: 07/20/18 Comparison is made with the prior exam of 02/04/18. This portable exam at 1829 shows moderate cardiomegaly. The vessels are really not all that congested . No effusions are appreciated. The lungs are clear. IMPRESSION: Cardiomegaly. POS: HOME
--- NOTE | 2018-07-20 21:16 | CT ---
CT ANGIO OF THE CHEST 07/20/[address] of the chest was performed for evaluation in a patient with a high D-dimer and leg swelling . Axial slices were acquired after a bolus of IV contrast. Oblique coronal reformations through the p ulmonary arteries were then done. There is good opacification of the pulmonary arteries. No filling defects were seen to suggest pulmo nary embolus. There is no sign of aortic dissection or aneurysm. No pericardial effusion of any signi ficant amount was seen. The heart is quite large. There is some nonspecific adenopathy in the mediast inum, largest nodes around the aorta measuring up to 1.8 cm in size. The lungs themselves seem a bit hazy such as might be seen with very mild edema, but there are no pleural effusions. Scans into the upper abdomen revealed mild hepatic enlargement and some diffuse haziness in both the soft tissues and fat that I presume is due to fluid overload. IMPRESSION: 1. No evidence of pulmonary embolism. 2. Marked cardiomegaly. 3. Ascites and mild hepatomegaly. POS: HOME
== END ==
LOC: BURERS 18:31
DX: I11.0 Hypertensive heart disease with heart failure (principal); I50.9 Heart failure, unspecified; F17.210 Nicotine dependence, cigarettes, uncomplicated; Z79.899 Other long term (current) drug therapy
CPT/HCPCS: 71045; 71275; 80053; 82553; 83880; 84484; 85025; 85379; 93005; 96374; J1940

== ENCOUNTER 2019-02-20 13:37 | Emergency (ER) | payer OTHER, SELFPAY ==
[2019-02-20] MEDS ORDERED: methylPREDNISolone Sod Succ/PF 125 MG/2 ML VIAL ONE (13:55)
[2019-02-20] MEDS ORDERED: Azithromycin 250 MG TAB ONE (13:55)
[2019-02-20] MEDS ORDERED: Gentamicin Ophth Soln 0.3% 5 ml Bottle ONE (13:55)
== END 2019-02-20 14:10 | disposition home or self-care (01) ==
LOC: BURERS 13:37
DX: J18.9 Pneumonia, unspecified organism (principal); J98.01 Acute bronchospasm; H10.9 Unspecified conjunctivitis; I11.0 Hypertensive heart disease with heart failure; I50.9 Heart failure, unspecified; E78.5 Hyperlipidemia, unspecified; F17.210 Nicotine dependence, cigarettes, uncomplicated; Z79.899 Other long term (current) drug therapy
CPT/HCPCS: 87070; 87077; 87205; 96372; 99284; J2930